=== PATIENT | female | born 1985 | race African-American/Black ===

== ENCOUNTER 2018-11-16 21:31 | Emergency (ER) | payer OTHER, SELFPAY ==
--- NOTE | 2018-11-16 22:07 | RAD ---
EXAM: 3 views of the right foot HISTORY: Foot pain after injuring it 5 months ago COMPARISON: 05/05/2005 FINDINGS: 3 views of the right foot shows no evidence of acute fracture or dislocation. No soft tissu e swelling is seen. No degenerative changes are present. IMPRESSION: No evidence of acute osseous abnormality.
== END 2018-11-16 23:00 | disposition home or self-care (01) ==
LOC: ERS 21:31
DX: M79.671 Pain in right foot (principal); J45.909 Unspecified asthma, uncomplicated; F31.9 Bipolar disorder, unspecified; F90.9 Attention-deficit hyperactivity disorder, unspecified type; F43.10 Post-traumatic stress disorder, unspecified; F17.210 Nicotine dependence, cigarettes, uncomplicated; W18.30XA Fall on same level, unspecified, initial encounter
CPT/HCPCS: 99281

== ENCOUNTER 2019-04-29 17:49 | Emergency (ER) | payer OTHER, SELFPAY ==
[2019-04-29 18:55] LABS: #Basophils 0.2 thou/uL (0.0-0.2); #Eosinphils 0.3 thou/uL (0.0-0.7); #Lymphocytes 3.6 thou/uL (1.20-3.40); #Monocytes 0.8 thou/uL (0.11-0.59); #Neutrophils 10.8 thou/uL (1.40-6.50); %Eosinophils 1.6 % (0.0-10.0); %Lymphocytes 23.3 % (21.0-51.0); %Neutrophils 69.1 % (42.0-75.0); Hemoglobin 13.8 g/dL (12.0-16.0); Mean Corpuscular HGB CONC 33.2 g/dL (32.0-36.0); Mean Corpuscular Hemoglobin 30.5 pg (27.0-31.0); Platelet Count 365 thou/uL (130-400); RBC Distribution Width 13.8 % (11.5-14.5); Red Blood Cell (RBC) Count 4.51 mill/uL (4.20-5.40); White Blood Cell (WBC) Count 15.6 thou/uL (4.8-10.8)
[2019-04-29 19:14] LABS: ALT (SGPT) 11 U/L (8-55); AST (SGOT) 12 U/L (5-34); Albumin 3.6 g/dL (3.5-5.0); Alkaline Phosphatase 88 U/L (40-110); Anion Gap 12 mmol/L (10-20); BUN (Urea Nitrogen) 7 mg/dL (7.0-18.7); Bilirubin, Total Less than 0.2 mg/dL (0.2-1.2); Calc. Creatinine Clearance 0 mL/min (70-130); Carbon Dioxide 25 mmol/L (22-29); Chloride 103 mmol/L (98-107); Estimated GFR-MDRD Greater than 90; Globulin 3.1 g/dL (2.4-3.5); Glucose 85 mg/dL (70-105); Potassium 3.7 mmol/L (3.5-5.1); Protein, Total 6.7 g/dL (6.0-8.3); Sodium 136 mmol/L (136-145)
--- NOTE | 2019-04-29 19:40 | ULT ---
Pelvic ultrasound: 04/29/2019 COMPARISON: None HISTORY: Right lower quadrant pain TECHNIQUE: Multiplanar grayscale sonographic imaging of the pelvis obtained with transabdominal imagi ng. Ovaries are assessed with color flow and spectral analysis/Doppler interrogation FINDINGS: The uterus measures 13.4 x 8.2 x 8.8 cm. A single intrauterine gestation is present, with a crown-rump length of 6.2 cm and a heart rate of 158 bpm. Estimated date of delivery is 11/07/2019. Estimated gestational age is 12 weeks 4 days. The right ovary is vaguely visualized on this examination measuring 3.3 x 4.3 x 3.0 cm. The appendix is not visualized on this exam. There is probable normal blood flow within the right ovary. Detailed assessment of the right ovary is suboptimal. IMPRESSION: Intrauterine gestation as detailed above. The right ovary is not well assessed but is lik demetra unremarkable. The appendix cannot be visualized/assessed on this exam.
[2019-04-29 19:46] LABS: Bilirubin Negative (Negative); Blood, Urine Negative (Negative); Clarity Clear (Clear); Glucose, Urine (Dipstick) Normal (Negative); Leukocyte 75 Leu/uL (Negative); Nitrite Negative (Negative); Protein, Urine (Dipstick) Negative (Neg-Trace); RBC/HPF 0-3 HPF (0-3); Urobilinogen Normal mg/dL (Less than 2); WBC/HPF 21-50 HPF (0-3)
[2019-04-29 19:47] LABS: Bacteria/HPF 1+ HPF (None Seen)
== END 2019-04-29 20:25 | disposition home or self-care (01) ==
LOC: ERS 17:49
DX: O99.89 Other specified diseases and conditions complicating pregnancy, childbirth and the puerperium (principal); R10.31 Right lower quadrant pain; O99.511 Diseases of the respiratory system complicating pregnancy, first trimester; J45.909 Unspecified asthma, uncomplicated; O99.341 Other mental disorders complicating pregnancy, first trimester; F31.9 Bipolar disorder, unspecified; F90.9 Attention-deficit hyperactivity disorder, unspecified type; F43.10 Post-traumatic stress disorder, unspecified; O99.331 Smoking (tobacco) complicating pregnancy, first trimester; F17.210 Nicotine dependence, cigarettes, uncomplicated; Z3A.12 12 weeks gestation of pregnancy
CPT/HCPCS: 36415; 76856; 80053; 81003; 81015; 84702; 85025; 86900; 86901; 93976

== ENCOUNTER 2019-05-24 10:55 | Emergency (ER) | payer OTHER | END 2019-05-24 11:28 | disposition left against medical advice (07) | LOC: ERS 10:55 | DX: O99.89 Other specified diseases and conditions complicating pregnancy, childbirth and the puerperium (principal); M54.5 Low back pain; O99.512 Diseases of the respiratory system complicating pregnancy, second trimester; J45.909 Unspecified asthma, uncomplicated; O99.342 Other mental disorders complicating pregnancy, second trimester; F31.9 Bipolar disorder, unspecified; F90.9 Attention-deficit hyperactivity disorder, unspecified type; F43.10 Post-traumatic stress disorder, unspecified; O99.332 Smoking (tobacco) complicating pregnancy, second trimester; F17.210 Nicotine dependence, cigarettes, uncomplicated | CPT/HCPCS: 99283 ==

== ENCOUNTER 2019-08-12 02:46 | Emergency (ER) | payer OTHER ==
[2019-08-12 17:29] LABS: SARS-CoV-2 MS2 Positive; SARS-CoV-2 N Gene Negative; SARS-CoV-2 S Gene Negative; SARS-CoV-2 orf1ab Negative
== END 2019-08-12 04:20 ==
LOC: ERS 02:46
DX: I95.9 Hypotension, unspecified (principal); Z20.828 Contact with and (suspected) exposure to other viral communicable diseases; J45.909 Unspecified asthma, uncomplicated; F17.210 Nicotine dependence, cigarettes, uncomplicated
CPT/HCPCS: 87635; 93005; U0003

== ENCOUNTER 2019-10-25 07:04 | Inpatient (IN) | payer OTHER ==
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
[~2019-10-25 07:04] MED LIST: hydrALAZINE 20 MG/ML VIAL SLOW IVP PRN
[2019-10-25] MEDS ORDERED: Promethazine HCl 25 MG/ML VIAL IM PRN ×2 (08:52→14:19)
[2019-10-25] MEDS ORDERED: Ondansetron PF 4 MG/2 ML Vial IVP PRN ×2 (08:52→14:19)
[2019-10-25] MEDS ORDERED: hydrALAZINE 20 MG/ML VIAL SLOW IVP PRN ×2 (08:52→16:54)
[2019-10-25 09:00] VITALS: BMI 47.7
[2019-10-25] MEDS ORDERED: CEFAZOLIN 2 GM in Premix Bag 1 BAG IVPB SCH (09:00)
[2019-10-25] MEDS ORDERED: Bicitra 30 ML UDCUP PO SCH (09:00)
[2019-10-25] MEDS: Lactated Ringer's 1,000 ML IV SCH ×2 (09:19→11:45)
[2019-10-25 09:40] LABS: Hemoglobin 14.3 g/dL (12.0-16.0); Mean Corpuscular HGB CONC 32.4 g/dL (32.0-36.0); Mean Corpuscular Hemoglobin 29.2 pg (27.0-31.0); Mean Corpuscular Volume 89.9 fL (78.0-98.0); Mean Platelet Volume 8.3 fL (7.4-10.4); Platelet Count 414 thou/uL (130-400); RBC Distribution Width 12.8 % (11.5-14.5); Red Blood Cell (RBC) Count 4.91 mill/uL (4.20-5.40); White Blood Cell (WBC) Count 14.7 thou/uL (4.8-10.8)
[2019-10-25 10:59] LABS: HBSAg Index 0.13 S/CO (0-0.99); Hep B Surf Ag Non-Reactive S/CO (NonReactive)
[2019-10-25] MEDS ORDERED: Fentanyl 100 MCG/2 ML VIAL ONE ×4 (11:48→13:39)
[2019-10-25] MEDS ORDERED: Succinylcholine Chloride 20 MG/ML 10 ml SYRINGE FS ONE (11:49)
[2019-10-25] MEDS ORDERED: PROPOFOL 20 ML ONE (11:49)
[2019-10-25] MEDS ORDERED: Ondansetron PF 4 MG/2 ML Vial ONE (11:49)
[2019-10-25] MEDS ORDERED: PHENYLEPHRINE-NS 100 MCG/ML 10 ML SYRINGE ONE (11:49)
[2019-10-25] MEDS ORDERED: Dexamethasone 4 mg/ml Vial ONE (11:49)
[2019-10-25] MEDS ORDERED: Oxytocin 10 UNITS/ML VIAL ONE (11:49)
[2019-10-25] MEDS ORDERED: EPHEDRINE 25 MG/5 ML SYRINGE ONE (11:49)
[2019-10-25] MEDS ORDERED: Ketorolac Tromethamine 30 MG/ML VIAL ONE (11:49)
[2019-10-25 11:56] LABS: Syphilis Antibody Index 12.69 S/CO (<1.00 Non-Reactive)
[2019-10-25] MEDS ORDERED: Midazolam HCl 2 mg/2 ml Vial ONE (12:06)
[2019-10-25] MEDS ORDERED: Rocuronium Bromide 50 MG/5 ML VIAL ONE (12:17)
[2019-10-25] MEDS ORDERED: Rocuronium Bromide 10 MG/ML (10ML VIAL) ONE (12:18)
[2019-10-25] MEDS ORDERED: Methylergonovine 0.2 MG/ML VIAL ONE (12:25)
[2019-10-25] MEDS ORDERED: Glycopyrrolate 0.2 MG/ML 5 ML SYRINGE ONE (12:30)
[2019-10-25 12:45] LABS: Actual Bicarbonate (HCO3a) 29.1 mEq/L (22-28); Base Excess (BEa) -0.2 mEq/L (-2.0 to +3.0)
[2019-10-25 12:45] LABS: Syphilis Antibody INDETERMINATE (Nonreactive)
[2019-10-25 12:47] LABS: Actual Bicarbonate (HCO3v) 26 mEq/L (22-28); Base Excess -1.8 mEq/L (-2.0 to +3.0); pH (Cord, venous) 7.28 (7.32-7.43)
[2019-10-25] MEDS ORDERED: Azithromycin 500 MG VIAL ONE ×2 (12:48→18:58)
--- NOTE | 2019-10-25 14:12 | PDOC.OPDEL ---
OB Operative/Delivery Note Delivery Dr/Surgeon: Alden Ruiz Pope, [place] Pre-Delivery Diagnosis: scheduled section (for Obesity, previous C/S) Procedure/Post Delivery Dx: repeat low transverse CS Weeks gestation: 39 (39.2 wga) Anesthesia: other (general) - Additional Findings/Plan Placenta delivered: manual removal findings: low transverse hysterotomy with extension (into cervix), normal tubes, normal ovaries Estimated blood loss: 725 mL Compilations/Other Findings: Date of Procedure: 10/25/2019, 1219 Resident Primary Surgeon: Kaykay Ruiz DO Ice Cream Freezer Surgeon: Africa Ruano MD Attending Residency Surgeon: Jourdan Ruiz MD Attending Laborist Surgeon: Constanza Domingo MD Procedure: Repeat low transverse caesarean section Preoperative Diagnosis: 1)Term intrauterine at 39.2 wga 2)Previous x3 3)Previous D&C x 1 4)Obesity 5)AMA 6)GERD 7)Incarcerated 8)Bipolar, PTSD 9)Hx of COVID, tested positive October 08, 2019 10)Hx of multiple STIs Postoperative Diagnosis: 1)same as above 2)Uterine atony requring administration of Pitocin and Methergine Anesthesia: general Indications: The patient is a 34 year old G5,P3013 female at 39.2 weeks gestation who presents for a repeat scheduled due to Obesity and hx of 3 previous c/s. Procedure in Detail: After risks, benefits, and alternatives were explained to the patient, she gave informed consent. Pre-operative antibiotics included Cefazolin 2 gram IV. The patient was taken to the operating room. She was placed in the supine position with a left tilt and prepped and draped in usual sterile fashion. Then general anesthesia was initiated. A Pfannenstiel incision was made with a scalpel and carried down to the level of the fascia which was sharply nicked. The fascial cut was extended bilaterally with Guillaume scissors. The inferior and superior edges of the cut fascial edges were elevated with Buddy clamps and the underlying rectus muscles were sharply and bluntly dissected free. The recti were divided digitally and retracted manually. The peritoneum was entered bluntly and retracted manually. Slick-O XL retractor was placed. A low transverse score was made with the scalpel and the uterus was entered in the midline with the scalpel. Meconium-stained fluid was seen. The hysterotomy was extended manually. The infant was noted to be vertex and was delivered by fundal pressure. Mouth and nares were bulb suctioned. Cord clamped and cut and grossly normal male was handed to waiting nurse. Cord blood was obtained. Placenta was manually extracted in 3 different portions, noted to have 3 vessel cord and sent for pathology. There were also several large dark clots present upon delivery of placenta with concern for possible subchorionic hemorrhage vs placental abruption. The uterus was externalized and the endometrium was curetted with a dry lap. Uterine atony was noted and patient was administered Pitocin and Methergine IV. It was then noted that the hysterotomy had extended into the cervix. At that time the on-call Laborist, Dr. Domingo was paged for assistance. Dr. Domingo closed the extension and uterus with a running locking #1 Monocryl suture. Following this hemostasis was noted. During hysterotomy closure there was concern that the bladder may have been compromised. Patient was then gave 1 g Azithromycin intra-operatively. Approximately 100 mL of Sterile formula was placed through the obando into the bladder. No formula was seen in the abdomen and it was determined that bladder was intact. The abdomen was irrigated with saline and suctioned free of clots. The uterus was internalized and the hysterotomy was again noted to be hemostatic. The fascia was closed with a running non-locking PDS suture. The subcutaneous tissue was irrigated and there were no bleeders. The subcutaneous tissue was then closed with a running non-locking 2-0 Plain gut suture. The skin was approximated with running non-locking 3-0 Plain gut suture and a pressure dressing was placed. All counts were correct. The patient tolerated the procedure well and was taken to the recovery room in stable condition. Quantitative Blood Loss: 725 ml Complications: Uterine Atony requiring admin of Pitocin and Methergine. Extension of hysterotomy into cervix. Bladder integrity tested with sterile formula and bladder appears intact. Specimens: Cord blood sent to lab for blood type and cord gas. Findings: Grossly normal male with Apgars of 8 and 9. Placenta delivered in 3 parts with 3 vessel cord, sent for pathology. Drains: Obando to gravity draining clear urine with no apparent blood. Post delivery plan: routine recovery
[2019-10-25] MEDS ORDERED: diphenhydrAMINE 50 MG/ML VIAL IVP PRN (14:19)
[2019-10-25] MEDS ORDERED: diphenhydrAMINE 25 MG CAP PO PRN ×2 (14:19→16:54)
[2019-10-25] MEDS ORDERED: Naloxone HCl 0.4 mg/ml Vial IV PRN (14:19)
[2019-10-25] MEDS ORDERED: fentaNYL Citrate/PF 2,000 MCG in Sodium Chloride 0.9% 60 ML IV PRN (14:19)
[2019-10-25] MEDS ORDERED: diphenhydrAMINE 50 MG/ML VIAL IM PRN (14:19)
[2019-10-25] MEDS ORDERED: Communication Order-Pharmacy FS PRN (14:30)
[2019-10-25] MEDS ORDERED: Azithromycin 1,000 MG in Sodium Chloride 0.9% 500 ML IVPB SCH (14:30)
[2019-10-25] MEDS ORDERED: Haloperidol Lactate 5 MG/ML VIAL SLOW IVP SCH (15:30)
[2019-10-25] MEDS ORDERED: hydrOXYzine 10 MG/5 ML UDCUP PO SCH (16:30)
--- NOTE | 2019-10-25 16:43 | PDOC.BPN ---
- Brief Progress Note Postoperative Note S: Patient is 4 hours s/p RLTCS. She is feeling anxious. Pain is well controlled w/ SHAVING MACHINE OPERATOR pump. Asked for something to calm her nerves. Plans to breast and formula feed. Has not yet tried . RN informed me the Obando was greatly bothering the patient. Has had to calm her down to keep her from pulling it out. O: VSS. Heart: RRR, no murmurs Lungs: CTAB Abd: moderately TTP, uterus firm and above umbilicus Extremity: SCDs in place Obando in place. A/P: - continue routine cares - obando in until 24 hrs postop - hydroxyzine 50mg given for anxiety. - continue abx for 24 hours after delivery. Azithromycin 500mg given in OR. Will give another 500mg for total of 1 g. Will give ancef 2g IV q8h until 24 hrs postop.
[2019-10-25] MEDS ORDERED: Lanolin Ointment 7 GM TUBE TOP PRN (16:54)
[2019-10-25] MEDS ORDERED: NS / Oxytocin 40 units/1000ml 1,000 ML IV SCH (16:54)
[2019-10-25] MEDS ORDERED: Bisacodyl 10 MG SUPP PR PRN (16:54)
[2019-10-25] MEDS ORDERED: Methylergonovine 0.2 MG/ML VIAL IM PRN (16:54)
[2019-10-25] MEDS ORDERED: Misoprostol 200 MCG TAB PR PRN (16:54)
--- NOTE | 2019-10-25 19:26 | CON ---
DATE OF CONSULTATION: 10/25/2019 CONSULTING PHYSICIAN: Jourdan Ruiz MD, Family Medicine. HISTORY OF PRESENT ILLNESS: I was called to the operating room for intraop consultation for a G5, P3 at 39 weeks and two days, who is undergoing a scheduled repeat low transverse section. For the entire operative details, please see the surgical resident and Dr. Ruiz's operative report. I will only cover the portion that I participated in. Delivery of had already occurred and an extension was noted on the right side of the hysterotomy extending down toward the cervix. Bleeding was minimal and I was able to incorporate the extension into the hysterotomy repair. The separation between the uterus and the bladder was very difficult to distinguish, with the bladder abutting up against the hysterotomy site. At that time, the bladder was backfilled with sterile milk and no leak of sterile milk was noted. The remainder of hysterotomy repair was performed with no evidence of bladder involvement. Good hemostasis was noted. There were no areas of injury to the bladder that were apparent at the time of . Please see the full op note for details for the remainder of the operation. Job ID: [id number] MTDD
[2019-10-25] MEDS: Ketorolac Tromethamine 30 MG/ML VIAL IVP PRN (19:56)
[2019-10-25] MEDS: CEFAZOLIN 2 GM in Premix Bag 1 BAG IVPB SCH (22:20)
[2019-10-26] MEDS: CEFAZOLIN 2 GM in Premix Bag 1 BAG IVPB SCH ×3 (03:02→19:29)
--- NOTE | 2019-10-26 04:51 | PDOC.PP ---
Post Progress Note Post Day #: 1 Subjective: Patient feeling well, says pain is controlled with DIE TRY OUT WORKER STAMPING pump and Toradol IM. She also says the Hydroxyzine greatly helped her anxiety and helped with Obando irritation. She has pass flatus but no BM yet. Has been able to tolerate several snacks of solid food. Urine output about 1 L since delivery. Has had about additional 110 mL of blood output since delivery making total QBL 837 mL. Planning on continuing to try to breastfeed with baby today, declines working with and declines breast pump. States that she is due for release this week from nursing home. PO intake tolerated: yes Flatus: yes Ambulation: yes Vital Signs (12 hours) Temp Pulse Resp BP Pulse Ox 10/25/19 19:33 99.0 F 97 14 128/67 10/25/19 18:20 98.3 F 79 18 132/76 97 Weight Weight 138.346 kg - Physical Examination General: NAD Cardiovascular: no m/r/g, RRR Respiratory: clear to auscultation bilaterally, non-labored breathing Abdominal: + bowel sounds, lochia (small amount), no distention, appropriately TTP Fundus firm & at: umbilicus Skin: CS incision dry & intact, no rash Neurological: no gross focal deficits Psychiatric: A&Ox3, normal affect Result Diagrams: 10/25/19 08:25 Additional Labs: Post Labs Blood Type A POSITIVE 10/25/19 08:25 Hep Bs Antigen Non-Reactive S/CO (NonReactive) 10/25/19 08:25 (1) Term Code(s): Z34.90 - ENCNTR FOR SUPRVSN OF NORMAL , UNSP, UNSP TRIMESTER Status: Acute (2) Advanced maternal age (AMA) in Code(s): [id number] - Status: Acute (3) Obesity affecting Code(s): O99.210 - OBESITY COMPLICATING , UNSPECIFIED TRIMESTER Status: Acute Qualifiers: Trimester: third trimester Qualified Code(s): O99.213 - Obesity complicating , third trimester (4) Bipolar 1 disorder Code(s): F31.9 - BIPOLAR DISORDER, UNSPECIFIED Status: Acute (5) GERD (gastroesophageal reflux disease) Code(s): K21.9 - GASTRO-ESOPHAGEAL REFLUX DISEASE WITHOUT ESOPHAGITIS Status: Acute Qualifiers: Esophagitis presence: without esophagitis Qualified Code(s): K21.9 - Gastro -esophageal reflux disease without esophagitis - Assessment/Plan 34 yo G5 now P4014 delivered at 39.2 weeks via rLTCS on 10/25/2019 at 1219, day#1 Term --now delivered - continue routine care - obando in until 24 hrs postop (~1400 today) - continue abx for 24 hours after delivery. Azithromycin 500mg given in OR and another 500mg given post-op for total of 1 g. Will give ancef 2g IV q8h until 24 hrs postop (~1400 today) - Miralax lolis for BMs per patient request - currently has DIE TRY OUT WORKER STAMPING pump for pain control, has used Toradol IM once. Encouraged patient to request PO prn medications and will discuss with anesthesia today about turning off pump - AM hemagram pending Bipolar, PTSD - hydroxyzine 50mg lolis for anxiety -patient declines resuming Haldol although does endorse she is willing to go back to [facility] to see Dr. Barrett Obesity - BMI 50 - excessive weight gain of 70+ pounds during this - discussed diet and exercise post- GERD - continue Pepcid BID, Tums prn Hx of Covid-19 POSITIVE status - Tested positive on 10/07 at residential, symptoms started 10/03. Symptoms resolved . - discussed with infectious disease and no covid precautions are indicated at this time. Inmate - Currently incarcerated - Due for release on 10/27 Seasonal Allergies -continue home med: Cetirizine Hx of STDs - HSV, last outbreak at age 17. Refused ppx this . - Hx of G/C, trich, syphilis 2014, PID 2008 & 2015 - G/C, trich, syphilis, HIV all neg this Hx of meth use - UDS during care neg - No use this d/t incarceration Hx of HSV -Declined ppx this -Denies sxs Diet: Consistent Carb VTE: SCDs Code: FULL Dispo: Stable, admit to [facility]. day #1 today after rLTCS. Continue routine care and monitoring. Anticipate discharge either or 10/27.
[2019-10-26] MEDS ORDERED: Calcium Carbonate 500 MG ChewTAB PO PRN (04:57)
[2019-10-26] MEDS: Ketorolac Tromethamine 30 MG/ML VIAL IVP PRN ×3 (05:10→19:28)
[2019-10-26] MEDS: HYDROcodone/Acetaminophen 5/325 mg Tablet PO PRN ×4 (05:17→19:28)
[2019-10-26 06:29] LABS: Mean Corpuscular HGB CONC 32.9 g/dL (32.0-36.0); Mean Corpuscular Hemoglobin 29.3 pg (27.0-31.0); Mean Platelet Volume 8.1 fL (7.4-10.4); Platelet Count 355 thou/uL (130-400); RBC Distribution Width 12.4 % (11.5-14.5); Red Blood Cell (RBC) Count 3.74 mill/uL (4.20-5.40); White Blood Cell (WBC) Count 16.6 thou/uL (4.8-10.8)
[2019-10-26] MEDS: hydrOXYzine 25 MG TAB PO SCH ×2 (10:22→21:05)
[2019-10-26] MEDS: Prenatal Vitamin 1 TAB PO SCH (10:22)
[2019-10-26] MEDS: Simethicone Chewable 80 MG TAB PO PRN (10:22)
[2019-10-26] MEDS: Polyethylene Glycol 3350 17 GM Packet PO SCH (10:24)
[2019-10-26] MEDS: Famotidine 20 MG TAB PO SCH ×2 (10:27→21:05)
[2019-10-26] MEDS ORDERED: guaiFENesin ER 600 MG TAB PO PRN (19:55)
[2019-10-27] MEDS: HYDROcodone/Acetaminophen 5/325 mg Tablet PO PRN ×5 (00:29→21:00)
[2019-10-27] MEDS: Ketorolac Tromethamine 30 MG/ML VIAL IVP PRN ×2 (00:51→07:14)
--- NOTE | 2019-10-27 03:07 | PDOC.PP ---
Post Progress Note Post Day #: 2 Subjective: Patient feeling well, says pain is somewhat controlled with Toradol IM & PO [place]. Says she used to be on [place] 10 at home in the past for back issues. Currently she has been receiving [place] 5. Says body hurts "all over" but main complaints are her abdomen and back. She also says the Hydroxyzine helping control anxiety. Still waiting on BM. Has voided multiple times since [place] removal. No additional blood output since delivery making total QBL 842 mL. Planning on continuing to try to breastfeed with baby today, declines working with and declines breast pump. States that she is due for release on from residential. CPS met with patient yesterday to work on plan for possible placement for patient's baby. She has 2 other children in foster family and 1 other child that lives with that child's father. PO intake tolerated: yes Flatus: yes Ambulation: yes Vital Signs (12 hours) Temp Pulse Resp BP Pulse Ox 10/27/19 00:00 98.5 F 95 18 136/63 10/26/19 20:00 97.3 F L 91 16 126/69 10/26/19 17:14 98.3 F 104 H 20 115/65 96 Weight Weight 138.346 kg - Physical Examination General: NAD Cardiovascular: no m/r/g, RRR Respiratory: clear to auscultation bilaterally, non-labored breathing Abdominal: + bowel sounds, appropriately TTP Extremities: negative homans (B) Skin: CS incision dry & intact, no rash Neurological: no gross focal deficits Psychiatric: A&Ox3 Deviation from normal: pressured, rapid speech Result Diagrams: 10/26/19 06:03 Additional Labs: Post Labs Blood Type A POSITIVE 10/25/19 08:25 Hep Bs Antigen Non-Reactive S/CO (NonReactive) 10/25/19 08:25 (1) Term Code(s): Z34.90 - ENCNTR FOR SUPRVSN OF NORMAL , UNSP, UNSP TRIMESTER Status: Acute (2) Advanced maternal age (AMA) in Code(s): HCD8331 - Status: Acute (3) Obesity affecting Code(s): O99.210 - OBESITY COMPLICATING , UNSPECIFIED TRIMESTER Status: Acute Qualifiers: Trimester: third trimester Qualified Code(s): O99.213 - Obesity complicating , third trimester (4) Bipolar 1 disorder Code(s): F31.9 - BIPOLAR DISORDER, UNSPECIFIED Status: Acute (5) GERD (gastroesophageal reflux disease) Code(s): K21.9 - GASTRO-ESOPHAGEAL REFLUX DISEASE WITHOUT ESOPHAGITIS Status: Acute Qualifiers: Esophagitis presence: without esophagitis Qualified Code(s): K21.9 - Gastro -esophageal reflux disease without esophagitis - Assessment/Plan 34 yo G5 now P4014 delivered at 39.2 weeks via rLTCS on 10/25/2019 at 1219, day#2 Term --now delivered - continue routine care - obando removed 10/25, has voided since without difficulty - abx given for 24 hours after delivery. Azithromycin 500mg given in OR and another 500mg given post-op for total of 1 g. Also given ancef 2g IV q8h until 24 hrs postop (~1400 on 10/25) - Miralax lolis for BMs per patient request, still due to have BM - DATA WAREHOUSING SPECIALIST pump discontinued, now has Toradol IM and [place] prn for pain control. - Bilateral tubal ligation desired for post- contraception Bipolar, PTSD - hydroxyzine 50mg lolis for anxiety - patient declines resuming Haldol although does endorse she is willing to go back to [facility] to see Dr. Barrett Obesity - BMI 50 - excessive weight gain of 70+ pounds during this - discussed diet and exercise post- GERD - continue Pepcid BID, Tums prn Hx of Covid-19 POSITIVE status - Tested positive on 10/07 at long term, symptoms started 10/03. Symptoms resolved . - discussed with infectious disease and no covid precautions are indicated at this time. Inmate - Currently incarcerated - Due for release on 10/27 - Case Management consulted for placement Seasonal Allergies -continue home med: Cetirizine Hx of STDs - HSV, last outbreak at age 17. Refused ppx this . - Hx of G/C, trich, syphilis 2014, PID 2009 & 2015 - G/C, trich, syphilis, HIV all neg this Hx of meth use - UDS during care neg - No use this d/t incarceration Hx of HSV -Declined ppx this -Denies sxs Diet: Consistent Carb VTE: SCDs Code: FULL Dispo: Stable, admit to [facility] on unit. day #2 today after rLTCS. Continue routine care and monitoring. Anticipate discharge either or 10/27.
[2019-10-27] MEDS: CEFAZOLIN 2 GM in Premix Bag 1 BAG IVPB SCH (03:17)
[2019-10-27] MEDS: Famotidine 20 MG TAB PO SCH ×2 (08:49→20:59)
[2019-10-27] MEDS: Prenatal Vitamin 1 TAB PO SCH (08:49)
[2019-10-27] MEDS: Simethicone Chewable 80 MG TAB PO PRN (08:50)
[2019-10-27] MEDS: Polyethylene Glycol 3350 17 GM Packet PO SCH (08:50)
[2019-10-27] MEDS: hydrOXYzine 25 MG TAB PO SCH ×2 (09:44→20:59)
[2019-10-27] MEDS: Bisacodyl 10 MG SUPP PR SCH ×2 (09:59→17:21)
[2019-10-27] MEDS: Ibuprofen 800 MG TAB PO SCH ×2 (13:25→21:00)
[2019-10-28] MEDS: HYDROcodone/Acetaminophen 5/325 mg Tablet PO PRN ×3 (00:36→12:58)
--- NOTE | 2019-10-28 02:47 | PDOC.PP ---
Post Progress Note Post Day #: 3 Subjective: Patient feeling well, says pain is controlled with PO [place]. Says body hurts "all over" but main complaint is her back. She also says the Hydroxyzine helping control anxiety. Had a BM. Signed release paperwork from [facility] around 0030 today. CPS met with patient yesterday to work on plan for placement for patient's baby with patient and patient's mother. Patient is supposed to call CPS later this morning to inform them of her release from half-way. Per patient if baby does not go home with her then baby will be placed with a foster family in [place], [place]. PO intake tolerated: yes Flatus: yes Ambulation: yes Vital Signs (12 hours) Temp Pulse Resp BP Pulse Ox 10/27/19 20:00 98.2 F 96 18 115/61 98 Weight Weight 138.346 kg - Physical Examination General: NAD Cardiovascular: no m/r/g, RRR Respiratory: clear to auscultation bilaterally, non-labored breathing Abdominal: + bowel sounds, no distention, appropriately TTP Fundus firm & at: below umbilicus Extremities: negative homans (B) Skin: CS incision dry & intact, no rash Neurological: no gross focal deficits Psychiatric: A&Ox3, normal affect Result Diagrams: 10/26/19 06:03 Additional Labs: Post Labs Blood Type A POSITIVE 10/25/19 08:25 Hep Bs Antigen Non-Reactive S/CO (NonReactive) 10/25/19 08:25 (1) Term Code(s): Z34.90 - ENCNTR FOR SUPRVSN OF NORMAL , UNSP, UNSP TRIMESTER Status: Acute (2) Advanced maternal age (AMA) in Code(s): AUA5483 - Status: Acute (3) Obesity affecting Code(s): O99.210 - OBESITY COMPLICATING , UNSPECIFIED TRIMESTER Status: Acute Qualifiers: Trimester: third trimester Qualified Code(s): O99.213 - Obesity complicating , third trimester (4) Bipolar 1 disorder Code(s): F31.9 - BIPOLAR DISORDER, UNSPECIFIED Status: Acute (5) GERD (gastroesophageal reflux disease) Code(s): K21.9 - GASTRO-ESOPHAGEAL REFLUX DISEASE WITHOUT ESOPHAGITIS Status: Acute Qualifiers: Esophagitis presence: without esophagitis Qualified Code(s): K21.9 - Gastro -esophageal reflux disease without esophagitis - Assessment/Plan 34 yo G5 now P4014 delivered at 39.2 weeks via rLTCS on 10/25/2019 at 1219, day#2 Term --now delivered - continue routine care - obando removed 10/25, has voided since without difficulty - abx given for 24 hours after delivery. Azithromycin 500mg given in OR and another 500mg given post-op for total of 1 g. Also given ancef 2g IV q8h until 24 hrs postop (~1400 on 10/25) - Miralax lolis for BMs per patient request, Dulcolax lolis but patient refused - FLUX MIXER pump discontinued 10/25, [place] prn for pain control. - Bilateral tubal ligation desired for post- contraception Bipolar, PTSD - hydroxyzine 50mg lolis for anxiety - patient declines resuming Haldol although does endorse she is willing to go back to [facility] to see Dr. Barrett Obesity - BMI 50 - excessive weight gain of 70+ pounds during this - discussed diet and exercise post- GERD - continue Pepcid BID, Tums prn Hx of Covid-19 POSITIVE status - Tested positive on 10/07 at half-way, symptoms started 10/03. Symptoms resolved . - discussed with infectious disease and no covid precautions are indicated at this time. Inmate - Currently incarcerated - Due for release on 10/27 - Case Management consulted for infant placement Seasonal Allergies -continue home med: Cetirizine Hx of STDs - HSV, last outbreak at age 17. Refused ppx this . - Hx of G/C, trich, syphilis 2014, PID 2009 & 2015 - G/C, trich, syphilis, HIV all neg this Hx of meth use - UDS during care neg - No use this d/t incarceration Hx of HSV -Declined ppx this -Denies sxs Diet: Consistent Carb VTE: SCDs Code: FULL Dispo: Stable, admit to [facility] unit. day #3 today after rLTCS. Continue routine care and monitoring. Anticipate discharge later today.
[2019-10-28] MEDS: Ibuprofen 800 MG TAB PO SCH ×2 (05:00→14:34)
[2019-10-28] MEDS: Bisacodyl 10 MG SUPP PR SCH ×2 (07:51)
[2019-10-28 08:28] VITALS: BP 122/60; TEMP 98.6
[2019-10-28] MEDS: Prenatal Vitamin 1 TAB PO SCH (08:55)
[2019-10-28] MEDS: Polyethylene Glycol 3350 17 GM Packet PO SCH (08:56)
[2019-10-28] MEDS: Famotidine 20 MG TAB PO SCH (08:56)
[2019-10-28] MEDS: hydrOXYzine 25 MG TAB PO SCH (08:56)
[2019-10-28] MEDS ORDERED: Ibuprofen 800 MG TAB PO SCH (22:00)
== END 2019-10-28 18:14 | disposition home or self-care (01) | DRG 788 ==
LOC: L&D 07:04 → 3SW 18:16
PROVIDERS: ADMIT Family Medicine; ATTEND Family Medicine
PROC: 10D00Z1 Extraction of Products of Conception, Low, Open Approach (ICD-10-PCS; principal; 2019-10-25)
DX: O34.211 Maternal care for low transverse scar from previous cesarean delivery (principal); O99.214 Obesity complicating childbirth; E66.9 Obesity, unspecified; O99.344 Other mental disorders complicating childbirth; F31.9 Bipolar disorder, unspecified; F43.10 Post-traumatic stress disorder, unspecified; O99.62 Diseases of the digestive system complicating childbirth; K21.9 Gastro-esophageal reflux disease without esophagitis; O75.89 Other specified complications of labor and delivery; Z3A.39 39 weeks gestation of pregnancy; Z37.0 Single live birth; Z86.19 Personal history of other infectious and parasitic diseases
CPT/HCPCS: 36415; 51702; 82805; 85027; 86593; 86780; 86850; 86900; 86901; 87340; 88307; 99285; J0456; J0690; J1100; J1885; J2210; J2250; J2405; J2590; J2704; J3010; J3490

== ENCOUNTER 2019-12-16 07:43 | Outpatient (CLI) | payer OTHER ==
[2019-12-16 11:53] LABS: Hemoglobin 12.8 g/dL (12.0-16.0); Mean Corpuscular HGB CONC 32.7 g/dL (32.0-36.0); Mean Corpuscular Hemoglobin 29.2 pg (27.0-31.0); Mean Corpuscular Volume 89.1 fL (78.0-98.0); Platelet Count 365 thou/uL (130-400); RBC Distribution Width 13.8 % (11.5-14.5); Red Blood Cell (RBC) Count 4.38 mill/uL (4.20-5.40); White Blood Cell (WBC) Count 8.7 thou/uL (4.8-10.8)
[2019-12-16 11:58] LABS: INR-International Normal Ratio 0.9; PTT 37.7 sec (22.9-36.1); Prothrombin Time 12.8 sec (12.0-14.7)
[2019-12-16 18:55] LABS: SARS-CoV-2 MS2 Positive; SARS-CoV-2 N Gene Positive; SARS-CoV-2 S Gene Positive; SARS-CoV-2 by NAA DETECTED (NotDetected); SARS-CoV-2 orf1ab Positive
== END 2019-12-16 07:44 | disposition home or self-care (01) ==
LOC: LABBT 07:43
PROVIDERS: ATTEND Neurological Surgery
DX: Z01.812 Encounter for preprocedural laboratory examination (principal); U07.1 COVID-19; M51.26 Other intervertebral disc displacement, lumbar region; M48.07 Spinal stenosis, lumbosacral region; S32.009K Unspecified fracture of unspecified lumbar vertebra, subsequent encounter for fracture with nonunion
CPT/HCPCS: 85027; 85610; 85730; 87635; U0003

== ENCOUNTER 2019-12-16 08:30 | Inpatient (IN) | payer OTHER ==
--- NOTE | 2020-01-05 13:33 | HP ---
REASON FOR HISTORY AND PHYSICAL: Surgery on 01/06/2020, case number is [id number]. HISTORY OF PRESENT ILLNESS: Ms. Harrell is a 34-year-old female with a chief complaint of lower back pain and right posterior leg pain, which has become significantly worse. She has tried right-sided transforaminal spinal epidural injections at L5-S1 providing her only a couple days of relief. Her symptoms have been going on for 10 years and she has tried injections, physical therapy, medications, and weight loss with no permanent relief. She denies bladder or bowel dysfunction. REVIEW OF SYSTEMS: CONSTITUTIONAL: Denies fever or chills. ENT: Denies change in vision or hearing. CARDIAC: Denies chest pain, shortness of breath, or diaphoresis. PULMONARY: Denies shortness of breath, cough, or hemoptysis. GI: Denies abdominal pain, nausea, vomiting, diarrhea, change in stool formation and consistency. : Denies trouble with urination, frequency of urination, or bloody urine. SKIN: Denies skin rash, bruising, bleeding, or skin masses. MUSCULOSKELETAL: As per history of present illness. NEUROLOGICAL: As per history of present illness. PSYCHOLOGICAL: Denies anxiety, depression, or behavior changes. PAST MEDICAL HISTORY: 1. Morbid obesity. 2. Anemia. 3. Asthma. 4. Chronic back pain secondary to spondylosis and facet syndrome. 5. Osteoarthritis. 6. Allergies. 7. Recurrent sinusitis. 8. Incarceration x2 due to possession of methamphetamines and drug paraphernalia. PAST SURGICAL HISTORY: 1. Tonsillectomy. 2. x3. 3. . HOSPITALIZATIONS: As above surgeries. FAMILY HISTORY: Father at age 50. Mother alive, 56 years of age. Children alive. One sister alive. SOCIAL HISTORY: Smoker, less than half a pack per day. Denies alcohol or illicit drugs. MEDICATIONS: 1. Hydrocodone-acetaminophen 7.5-325 mg. 2. Wellbutrin XL 150 mg. 3. Trazodone 50 mg. 4. Acetaminophen-codeine 300-60 mg. 5. Tizanidine 4 mg. 6. Advair 115-21 mcg. 7. ProAir 90 mcg. ALLERGIES: AVOCADOS. VITAL SIGNS: Weight 287 pounds, height 67 inches, BMI 44.98. PHYSICAL EXAMINATION: HEENT: Pupils are equal. Extraocular movements are intact. NECK: Soft, supple. No masses are noted. Range of motion is intact and nonpainful. NEUROLOGICAL: Awake, alert, and oriented x3. Memory, attention, fund of knowledge normal. Cranial nerves grossly intact. Gait and station: Normal. Motor exam: There is normal strength in the iliopsoas, quadriceps, hamstrings, anterior tib, EHL, gastroc, and toe flexors. Sensory exam: Some loss of the L5-S1 right and L5 left. IMAGING DATA: MRI of the lumbar spine: L5-6 herniated lumbar disk with lateral recess bilaterally. L6-S1 transverse process and sacrum pseudarthrosis right next to the L5 or S1 nerve root. X-ray of the lumbar spine: Flexion-extension stable. ASSESSMENT: 1. Spondylosis with radiculopathy of the lumbosacral region. 2. Radiculopathy of the lumbosacral region. 3. Intervertebral disk displacement of the lumbar region. PLAN: 1. L5-6 laminectomy, facetectomy, and foraminotomy; and L6-S1 laminectomy with TLIF. 2. Preop labs: CBC, PT, PTT, INR. 3. Clearance. 4. Quit nicotine 1 month prior to surgery. INFORMED CONSENT: We discussed the indications, risks, benefits, alternatives, and expected results from surgery. The risks discussed included, but were not limited to, bleeding, infection, CSF leak, nerve damage, weakness, incontinence, cauda equina injury, arachnoiditis, paralysis, ventilator dependency, wheelchair dependency, loss of vision, hardware misplacement, cardiopulmonary complications of anesthesia or . Long-term complications discussed included, but were not limited to, degeneration of surrounding disk and further surgery. She understands the risks and is willing to proceed. Job ID: [id number] [facility]
[2020-01-06] MEDS ORDERED: EPINEPHrine 1 MG/ML AMP ONE (06:11)
[2020-01-06] MEDS ORDERED: Bupivacaine PF 0.5% 30 ML VIAL ONE (06:11)
[2020-01-06] MEDS ORDERED: Thrombin 5000 UNITS/5 ML VIAL ONE (06:11)
[2020-01-06] MEDS ORDERED: HYDROmorphone 0.5 MG/0.5 ML SYRINGE ONE (06:41)
[2020-01-06] MEDS ORDERED: Ketamine 50 MG/ML (10ML VIAL) ONE (06:42)
[2020-01-06] MEDS ORDERED: Midazolam HCl 2 mg/2 ml Vial ONE (06:46)
[2020-01-06] MEDS ORDERED: Fentanyl 100 MCG/2 ML VIAL ONE ×4 (06:58→13:50)
[2020-01-06] MEDS ORDERED: Mag-Al 1200 mg/1200 mg/30 ML UDCUP PO PRN (11:09)
[2020-01-06] MEDS ORDERED: Acetaminophen 325 MG TAB PO PRN (11:09)
[2020-01-06] MEDS ORDERED: diphenhydrAMINE 25 MG CAP PO PRN (11:09)
[2020-01-06] MEDS ORDERED: Scopolamine 1.5 mg/72 hour Patch TD PRN (11:09)
[2020-01-06] MEDS ORDERED: Promethazine HCl 25 MG/ML VIAL IM PRN (11:09)
[2020-01-06] MEDS ORDERED: Milk Of Magnesia 30 ML UDCUP PO PRN (11:09)
[2020-01-06] MEDS ORDERED: traMADol HCl 50 MG TAB PO PRN (11:09)
[2020-01-06] MEDS ORDERED: Promethazine 25 MG TAB PO PRN (11:09)
[2020-01-06] MEDS ORDERED: Meperidine HCl/PF 25 MG/ML VIAL SLOW IVP PRN (11:23)
[2020-01-06] MEDS ORDERED: Ondansetron HCl/PF 4 MG/2 ML Vial IVP PRN (11:23)
[2020-01-06] MEDS ORDERED: HYDROmorphone 2 MG/ML VIAL SLOW IVP PRN (11:23)
[2020-01-06] MEDS ORDERED: Promethazine HCl 25 MG/ML VIAL SLOW IVP PRN (11:23)
[2020-01-06] MEDS ORDERED: SUGAMMADEX SODIUM 200 MG/2 ML VIAL ONE (11:28)
[2020-01-06] MEDS ORDERED: Meperidine HCl/PF 25 MG/ML VIAL ONE (11:48)
[2020-01-06] MEDS ORDERED: Vecuronium 10 MG VIAL ONE (11:49)
[2020-01-06] MEDS ORDERED: Succinylcholine 200 MG/10 ml SYRINGE FS ONE (11:49)
[2020-01-06] MEDS ORDERED: PROPOFOL 200 MG/20 ML VIAL ONE (11:49)
[2020-01-06] MEDS ORDERED: Rocuronium Bromide 10 MG/ML (10ML VIAL) ONE (11:49)
[2020-01-06] MEDS ORDERED: Dexamethasone 20 MG/5 ML VIAL ONE (11:49)
[2020-01-06] MEDS ORDERED: Lidocaine 1% PF 5 ML VIAL ONE (11:49)
[2020-01-06] MEDS ORDERED: Ondansetron PF 4 MG/2 ML Vial ONE ×3 (11:49→14:07)
[2020-01-06] MEDS ORDERED: Ketorolac Tromethamine 30 MG/ML VIAL ONE (11:49)
[2020-01-06] MEDS ORDERED: Promethazine HCl 25 MG/ML VIAL ONE (12:40)
[2020-01-06] MEDS ORDERED: HYDROmorphone 2 MG/ML VIAL ONE (12:40)
--- NOTE | 2020-01-06 14:20 | OP ---
DATE OF PROCEDURE: 01/06/2020 [place] MACHINE OPERATOR: Gilles Andre PA-C PREOPERATIVE INDICATION: Treat pain and prevent neurological deterioration. PREOPERATIVE DIAGNOSES: Lumbar lateral recess stenosis from intervertebral disk disease at L5-L6 (transitional segment), extensive right L6-S1 foraminal stenosis and far-lateral osteophytes, lumbosacral radiculopathy, right side, pseudarthrosis between L6 and the sacrum also causing mass effect on the exiting nerve root. POSTOPERATIVE DIAGNOSES: Lumbar lateral recess stenosis from intervertebral disk disease at L5-L6 (transitional segment), extensive right L6-S1 foraminal stenosis and far-lateral osteophytes, lumbosacral radiculopathy, right side, pseudarthrosis between L6 and the sacrum also causing mass effect on the exiting nerve root. PROCEDURES PERFORMED: 1. Decompressive laminectomy with medial facetectomy and foraminotomy at L5-L6. 2. Decompressive laminectomy with extensive foraminotomy, L6-S1, especially on the right side (much more work than necessary for transforaminal lumbar interbody fusion alone). 3. Transforaminal lumbar interbody arthrodesis, L6-S1. 4. Placement of intervertebral biomechanical device, L6-S1. 5. Posterolateral arthrodesis, L6-S1. 6. Pedicle screw and lang instrumentation, L6-S1. 7. Local morselized autograft, morselized allograft. PREOPERATIVE MEDICATIONS: Ancef 2 g IV. DRAIN: Zero. DRAIN TYPE: None. ESTIMATED BLOOD LOSS: 300 mL. DESCRIPTION OF PROCEDURE: The patient was brought to the operating room. General endotracheal anesthesia was induced. The patient was positioned prone on the [place] frame with appropriate padding for the chest and hips. A lateral fluoro radiograph was used to plan our incision. The lumbar skin was sterilely prepped and draped. We opened a midline incision and controlled bleeding with bipolar and monopolar cautery. We used monopolar cautery to dissect through subcutaneous tissues to the thoracodorsal fascia. We incised the fascia in the midline and reflected the paraspinal muscles off L5, L6, and S1 (the patient had a transitional segment that was not incorporated into the sacrum that we were calling L6). A lateral fluoro radiograph confirmed the levels upon which we were operating. We then exposed the facet joint at L5-L6 and L6-S1 and carried the dissection over the facet joints, so we could visualize the transverse processes of L6 and the sacral ala bilaterally. We irrigated with bacitracin irrigation. We turned our attention to decompression. There was a central disk protrusion at L5-L6 causing bilateral neural compression under the facets. This was decompressed with a laminectomy. They were performed with Kerrison rongeurs. We performed medial facetectomies at L5-L6 on both sides to ensure the traversing nerve roots were no longer compressed. We then turned our attention to L6-S1. Here, most of the compression was in the foramen on the right side. We performed a laminectomy and then we followed the exiting nerve root out the L6-S1 foramen extensively into the lateral space. There was compression around the surface of the sacrum from a pseudarthrosis between the transverse process of L6 and S1 and with foraminotomy, Kerrisons, we carefully opened this out. This took an extensive and careful dissection much more so than was needed for a TLIF. After our nerves were all decompressed, we turned our attention to generated vertical space at the L6-S1 foramen with the TLIF. We gently retracted the thecal sac medially and incised the disk space. We removed disk contents using curettes and rongeurs and prepared the endplates for grafting with a bone rasp. A rectangular bone rasp measuring 9 mm was the maximal size we could fit. A 9-mm PEEK intervertebral graft was brought into the field. Laminectomy bone removed during our decompression was morselized after soft tissue was removed from it. The morselized bone was added to demineralized bone matrix as our fusion substrate and the substrate was packed in the center of the 9-mm PEEK graft. The graft was advanced into the interspace under radiographic guidance to the appropriate depth. We then turned our attention to pedicle screw instrumentation. Using bony anatomic landmarks, palpation of the medial portion of the pedicles and a lateral fluoro radiograph as our guide, we chose entry points for pedicle screws at L5 and S1 bilaterally. We advanced the bone awl through the pedicles into the vertebral bodies and then tapped each trajectory with a threaded tap. When we probed with a micro ball, we found them completely encased in bone. We placed our pedicle screws and then generated a 360-degree image set with isocentric C-arm. This confirmed adequate positioning of our instrumentation. We irrigated with bacitracin irrigation. We then decorticated the transverse processes of L6 and the sacral ala bilaterally. Over the decorticated bone, we left demineralized bone matrix and morselized autograft as our posterolateral fusion substrate. We irrigated the center of the wound once again. We brought rods down into the screw heads and tightened caps over the rods. Using a torque/counter-torque mechanism, we ensured adequate tightness. Before final tightening, we applied gentle compression across the interspace to keep the interbody graft in place. We could still fit a ball probe out the L6-S1 foramen on the right side without any impingement due to our previous bone work. We then treated the wound with vancomycin powder and we closed with vancomycin powder, we infused local anesthetic in the paraspinal muscles, and we closed in anatomical layers. We applied a sterile dressing. This was a clean case, no contamination. Job ID: [id number]
[2020-01-06 14:50] VITALS: BMI 43.8
[2020-01-06] MEDS: Sodium Chloride 0.9% 1,000 ML IV SCH (15:39)
[2020-01-06] MEDS: CEFAZOLIN 2 GM in Premix Bag 1 BAG IVPB SCH ×2 (15:40→22:18)
[2020-01-06] MEDS: Acetaminophen/Codeine 30-300mg Tablet PO PRN ×2 (16:20→20:11)
[2020-01-06] MEDS: tiZANidine HCl 4 MG TAB PO PRN (20:09)
[2020-01-06] MEDS: HYDROcodone/Acetaminophen 10/325 mg Tablet PO PRN (22:17)
[2020-01-06] MEDS: guaiFENesin ER 600 MG TAB PO SCH (22:17)
[2020-01-07] MEDS: Sodium Chloride 0.9% 1,000 ML IV SCH ×2 (00:28→14:13)
[2020-01-07] MEDS: HYDROcodone/Acetaminophen 10/325 mg Tablet PO PRN ×5 (02:28→21:29)
[2020-01-07] MEDS: tiZANidine HCl 4 MG TAB PO PRN ×3 (02:32→18:04)
[2020-01-07] MEDS: Morphine 2 MG/ML VIAL SLOW IVP PRN ×2 (03:19→05:42)
--- NOTE | 2020-01-07 06:45 | PRG ---
DATE OF SERVICE: : I saw Carolin Harrell in her hospital room this morning. She had significant pain control issues overnight, requiring more medication than has been prescribed. She is concerned about numbness in her legs. There was not a significant amount of radiating pain down the leg, however. She did not get out of bed and walk yesterday. Her left arm feels a bit numb as well. Overnight, there are no fevers recorded. Blood pressures have been in the 110s to 120s. There are no new motor deficits on her examination. The subjective sensory loss is in the right heel in the ulnar distribution of the left arm. Our plan today is to have Anesthesia/Pain Management Service to help get the pain under better control and ask Physical Therapy to start working with her. It may be that she needs inpatient rehabilitation after this operation and we can have a consult placed for post-acute care planning. If she is a good candidate for inpatient rehabilitation, we can move her any time. Job ID: [id number] [facility]
[2020-01-07] MEDS: guaiFENesin ER 600 MG TAB PO SCH ×2 (08:04→20:08)
[2020-01-07] MEDS ORDERED: FLU VACC QS2020-21(6MOS UP)/PF 60 MCG/0.5 ML SYRINGE IM ONE (09:00)
[2020-01-07] MEDS ORDERED: fentaNYL Citrate/PF 2,000 MCG in Sodium Chloride 0.9% 60 ML IV PRN (09:15)
[2020-01-07] MEDS ORDERED: Acetaminophen 500 MG TAB PO SCH (12:00)
[2020-01-07] MEDS ORDERED: HYDROcodone/Acetaminophen 10/325 mg Tablet PO PRN ×2 (12:26)
[2020-01-07] MEDS ORDERED: traMADol HCl 50 MG TAB PO PRN (12:26)
[2020-01-07] MEDS: Morphine 4 MG/ML VIAL SLOW IVP PRN ×3 (14:21→20:08)
[2020-01-07] MEDS: traMADol HCl 50 MG TAB PO PRN (20:07)
[2020-01-08] MEDS: tiZANidine HCl 4 MG TAB PO PRN ×3 (00:02→15:40)
[2020-01-08] MEDS: HYDROcodone/Acetaminophen 10/325 mg Tablet PO PRN ×5 (02:07→20:17)
[2020-01-08] MEDS: traMADol HCl 50 MG TAB PO PRN ×2 (03:23→22:32)
[2020-01-08] MEDS: Morphine 4 MG/ML VIAL SLOW IVP PRN ×6 (03:25→22:28)
[2020-01-08] MEDS: Sodium Chloride 0.9% 1,000 ML IV SCH ×2 (03:41→17:45)
[2020-01-08] MEDS: guaiFENesin ER 600 MG TAB PO SCH ×2 (07:59→20:18)
--- NOTE | 2020-01-08 10:18 | PRG ---
DATE OF SERVICE: 01/08/2020 The patient is now postoperative day #2, status post L5-L6 decompression, L6-S1 decompression and fusion. Following the surgery, she did have significant issues with postoperative pain. She was evaluated by both Anesthesia and Pain Management, who tried a fentanyl DATA WAREHOUSING ENGINEER. The patient reports she got a little improvement in this DATA WAREHOUSING ENGINEER and was frustrated by having to push the button regularly. She has since been transitioned to p.o. Baker with p.r.n. tizanidine and tramadol. She reports she has still gotten not much improvement in her overall pain. Most of her pain is primarily in the back, although she does report some occasional sharp shooting pains and numbness in the legs. She seems to be moving her legs well in the bed. She is somewhat anxious and tearful in the bed this morning. She does appear to be moving her legs spontaneously without difficulty. Her blood pressure is slightly low at 90s/50s and her heart rate is 107. Her T-max was 99.9 overnight. The patient has had significant issues with postoperative pain control. I think the patient would be a good candidate for inpatient rehabilitation and she has been accepted. We are currently waiting on a bed, but if one opens today, likely she would be able to transition sometime later today. Job ID: [id number]
[2020-01-08] MEDS ORDERED: Albuterol Sulfate 1.25 MG/3 ML NEB INH PRN (13:00)
[2020-01-08] MEDS: Mometasone 100 MCG/Formoterol 5 MCG 120 PUFF INHALER INH SCH (18:48)
[2020-01-09] MEDS: HYDROcodone/Acetaminophen 10/325 mg Tablet PO PRN ×5 (02:21→20:02)
[2020-01-09] MEDS: tiZANidine HCl 4 MG TAB PO PRN ×2 (02:21→13:05)
[2020-01-09] MEDS: Morphine 4 MG/ML VIAL SLOW IVP PRN ×5 (04:52→21:05)
[2020-01-09] MEDS: Mometasone 100 MCG/Formoterol 5 MCG 120 PUFF INHALER INH SCH ×2 (07:05→18:52)
[2020-01-09] MEDS: guaiFENesin ER 600 MG TAB PO SCH ×2 (08:36→20:02)
[2020-01-09] MEDS: Sodium Chloride 0.9% 1,000 ML IV SCH ×2 (08:37→19:38)
--- NOTE | 2020-01-09 09:55 | PRG ---
DATE OF SERVICE: 01/09/2020 The patient is now postoperative day #2. She is much more calm and more comfortable this morning. She reports she slept better last night and was able to work with physical therapy yesterday afternoon. On exam this morning, she is awake and alert, in no acute distress. She has good strength in her legs. When examined in the bed, she is not having any incisional issues. We will continue to have her work with PT and OT with transition to rehab at some point. Job ID: [id number] [facility]
[2020-01-09] MEDS: traMADol HCl 50 MG TAB PO PRN (13:05)
[2020-01-10] MEDS: tiZANidine HCl 4 MG TAB PO PRN
[2020-01-10] MEDS: HYDROcodone/Acetaminophen 10/325 mg Tablet PO PRN ×4 (03:54→14:39)
[2020-01-10] MEDS: traMADol HCl 50 MG TAB PO PRN ×2 (03:57→17:35)
[2020-01-10] MEDS: Morphine 4 MG/ML VIAL SLOW IVP PRN ×4 (04:49→19:25)
--- NOTE | 2020-01-10 07:08 | PRG ---
DATE OF SERVICE: 01/10/2020 Ms. Harrell is 6 days out from decompression fusion of the lumbar spine. She had some pain control issues and needs some assistance for mobility. She has been accepted to inpatient rehabilitation. Among the electronically recorded vital signs, I do not see any fevers over the last night. Blood pressures have been in the 90s to 110s. There are no new neurological deficits. Ms. Harrell is ready for inpatient rehabilitation and can be transferred at any time. Job ID: [id number]
[2020-01-10] MEDS: Mometasone 100 MCG/Formoterol 5 MCG 120 PUFF INHALER INH SCH ×2 (08:03→19:44)
[2020-01-10] MEDS: Sodium Chloride 0.9% 1,000 ML IV SCH (08:51)
[2020-01-10] MEDS: guaiFENesin ER 600 MG TAB PO SCH (08:53)
[2020-01-10 16:09] VITALS: TEMP 98
[2020-01-10 20:26] VITALS: BP 120/68
--- NOTE | 2020-01-12 12:26 | DIS ---
DATE OF ADMISSION: 01/06/2020 DATE OF DISCHARGE: 01/10/2020 HOSPITAL COURSE: Ms. Harrell is a 34-year-old female, who underwent a L5-S1 laminectomy with TLIF. Following her surgery, she was transitioned to med/surg floor. Her pain level was not in control, so Anesthesia was consulted and a CLIENT SERVICES ASSOCIATE pump was placed. She tolerated regular diet and was voiding appropriately. She is otherwise doing well, ambulating with physical therapy in the hallways and is awaiting inpatient rehab accepted by insurance. On exam today, she is awake and alert, in no acute distress. She has free active range of motion in all extremities. No focal motor weakness. No reflex asymmetry. Her incision is clean, dry, and intact. Hopefully later today, we will be able to discharge Sharri to inpatient rehab. I have discussed home care precautions with her. CONDITION ON DISCHARGE: The patient had no emergencies. Condition was stable for discharge to inpatient rehab. MEDICATIONS: Home going medications were reviewed. FOLLOWUP: Follow up arrangements made by our community recreation coordinator in the clinic and call to the patient. ACTIVITIES: Restrictions were reviewed in person. Wound care showers are acceptable. The patient should pat the incision dry, but not submerge under the surface of the body of water for one month. Job ID: [id number]
== END 2020-01-10 20:10 | DRG 454 ==
LOC: SURG A 01-06 11:09
PROVIDERS: ADMIT Neurological Surgery; ATTEND Neurological Surgery
PROC: 0SG30AJ Fusion of Lumbosacral Joint with Interbody Fusion Device, Posterior Approach, Anterior Column, Open Approach (ICD-10-PCS; principal; 2020-01-06)
PROC: 0SG3071 Fusion of Lumbosacral Joint with Autologous Tissue Substitute, Posterior Approach, Posterior Column, Open Approach (ICD-10-PCS; 2020-01-06)
PROC: 01NB0ZZ Release Lumbar Nerve, Open Approach (ICD-10-PCS; 2020-01-06)
PROC: 01NR0ZZ Release Sacral Nerve, Open Approach (ICD-10-PCS; 2020-01-06)
DX: M47.27 Other spondylosis with radiculopathy, lumbosacral region (principal); Z68.41 Body mass index [BMI] 40.0-44.9, adult; M51.16 Intervertebral disc disorders with radiculopathy, lumbar region; E66.01 Morbid (severe) obesity due to excess calories; D64.9 Anemia, unspecified; J45.909 Unspecified asthma, uncomplicated; M19.90 Unspecified osteoarthritis, unspecified site; G89.29 Other chronic pain; F41.9 Anxiety disorder, unspecified; F31.9 Bipolar disorder, unspecified; F43.10 Post-traumatic stress disorder, unspecified; M48.061 Spinal stenosis, lumbar region without neurogenic claudication; M25.78 Osteophyte, vertebrae; Z87.891 Personal history of nicotine dependence; Z79.51 Long term (current) use of inhaled steroids; Z79.899 Other long term (current) drug therapy
CPT/HCPCS: 76000; C1713; C1768; J0171; J0690; J1100; J1170; J1885; J2175; J2250; J2270; J2405; J2550; J2704; J3010; J3370; J3490; S0020

== ENCOUNTER 2020-11-14 14:58 | Emergency (ER) | payer OTHER ==
[2020-11-14 15:51] LABS: Pregnancy Test - Urine (BHCG) POSITIVE (Negative); Pregu Control Background? CLEAR/WHITE (CLR/WHITE); Pregu Control Bar Appear? YES (CONTROL BAR); Specific Gravity 1.025 (1.002-1.036)
[2020-11-14 15:58] LABS: Bacteria/HPF 2+ HPF (None Seen); Bilirubin Negative (Negative); Blood, Urine Negative (Negative); Clarity Clear (Clear); Glucose, Urine (Dipstick) Normal (Negative); Ketone, Urine Trace mg/dL (Negative); Leukocyte 75 Leu/uL (Negative); Mucous/LPF Rare LPF (<2+); Nitrite 1+ (Negative); Protein, Urine (Dipstick) 20 mg/dL (Neg-Trace); RBC/HPF 0-3 HPF (0-3); Specific Gravity, Urine 1.025 (1.002-1.036); Squamous Epithelial 21-50 HPF (0-3); Yeast-Budding 1+ HPF (None Seen)
[2020-11-16 16:31] LABS: Chlamydia by PCR Not Detected (NotDetected); GC by PCR DETECTED (NotDetected)
== END 2020-11-14 17:13 | disposition home or self-care (01) ==
LOC: ERS 14:58
DX: N76.0 Acute vaginitis (principal); N39.0 Urinary tract infection, site not specified; B37.3 Candidiasis of vulva and vagina; Z33.1 Pregnant state, incidental; J45.909 Unspecified asthma, uncomplicated; F17.210 Nicotine dependence, cigarettes, uncomplicated
CPT/HCPCS: 81003; 81015; 81025; 87077; 87086; 87186; 87480; 87491; 87510; 87591; 87660